=== PATIENT | male | born 1970 | race Two or more races ===

== ENCOUNTER 2018-06-19 06:03 | Inpatient (IN) | payer OTHER ==
[2018-06-19] MEDS: ACETAMINOPHEN 500 MG TAB PO (06:30)
[2018-06-19] MEDS ORDERED: TRANEXAMIC ACID 1GM/100ML(PMX) 200 ML (06:55)
[2018-06-19] MEDS: oxyCODONE (CR) 10 MG TAB [oxyCONTIN] PO (07:13)
[2018-06-19] MEDS: DEXAMETHASONE 4 MG/ML 1 ML INJ IV (07:13)
[2018-06-19] MEDS: ONDANSETRON 4 MG INJ IV ×4 (07:13→23:00)
[2018-06-19] MEDS: LACTATED RINGER'S 1,000 ML IV* ×2 (07:14→14:14)
[2018-06-19] MEDS: ACETAMINOPHEN 1000MG/100ML IV 100 ML IVPB (07:14)
[2018-06-19] MEDS: LANSOPRAZOLE 30 MG CAP PO (07:15)
[2018-06-19] MEDS ORDERED: morphine SULFATE/PF (10 MG/10 ML) INJ (07:36)
[2018-06-19] MEDS ORDERED: MIDAZOLAM 1 MG/ML 2 ML INJ (07:38)
[2018-06-19] MEDS ORDERED: PHENYLephrine (100 MCG/ML) 10ML SYG (07:51)
[2018-06-19] MEDS ORDERED: FENTAnyl 50 MCG/ML VIAL IV ×2 (08:00)
[2018-06-19] MEDS ORDERED: ONDANSETRON 4 MG INJ IV (08:00)
[2018-06-19] MEDS ORDERED: DIPHENHYDRAMINE 50 MG INJ IV (08:00)
[2018-06-19] MEDS ORDERED: METOCLOPRAMIDE 10 MG INJ IV (08:00)
[2018-06-19] MEDS ORDERED: ALBUTEROL 0.083% (NEB) 2.5 MG/3 ML AMP HHN (08:00)
[2018-06-19] MEDS ORDERED: MEPERIDINE 25 MG INJ IV (08:00)
[2018-06-19] MEDS ORDERED: HYDROmorphONE 1 MG/5 ML IV SYRINGE IV ×3 (08:00)
[2018-06-19] MEDS ORDERED: ONDANSETRON 4 MG INJ (08:01)
[2018-06-19] MEDS: TRANEXAMIC ACID 1GM/100ML(PMX) 100 ML PRE-OP X1 IVPB ×2 (08:21→10:38)
[2018-06-19] MEDS: POLYMYXIN B 500000 UNIT INJ (09:18)
[2018-06-19] MEDS: POLYMYXIN/BACITRACIN 1L IRRIG (09:19)
[2018-06-19] MEDS: BACITRACIN 50000 UNITS INJ (09:19)
[2018-06-19] MEDS ORDERED: FENTAnyl 50 MCG/ML VIAL (09:32)
[2018-06-19] MEDS ORDERED: CEFAZOLIN 1 GM INJ (09:38)
[2018-06-19] MEDS ORDERED: PROPOFOL 40 ML (09:38)
[2018-06-19] MEDS ORDERED: PHENYLephrine 10 MG INJ (10:05)
[2018-06-19] MEDS: TRANEXAMIC ACID 1GM/100ML(PMX) 100 ML INTRA-OP X1 IVPB (10:15)
[2018-06-19] MEDS ORDERED: NEOMYC/POLYMYX/BACIT 30 GM OINT (10:25)
[2018-06-19] MEDS ORDERED: NALOXONE (0.4 MG/ML) INJ IV (11:00)
[2018-06-19] MEDS ORDERED: KETOROLAC 15 MG INJ IV (11:00)
[2018-06-19] MEDS ORDERED: HYDROCODONE/APAP (5/325) TAB PO (11:00)
[2018-06-19] MEDS ORDERED: oxyCODONE 5 MG TAB PO (11:00)
[2018-06-19] MEDS: DOCUSATE SODIUM 100 MG CAP PO (11:28)
[2018-06-19] MEDS: CEFAZOLIN 1 GM/50 ML (PMX) 50 ML IVPB (11:59)
[2018-06-19] MEDS: GABAPENTIN 100 MG CAP PO ×2 (13:30→20:29)
[2018-06-19] MEDS ORDERED: HIP PAIN COCKTAIL (CEFUROXIME) INJ (15:30)
[2018-06-19] MEDS ORDERED: KNEE PAIN COCKTAIL VANCO INJ (15:30)
[2018-06-19] MEDS ORDERED: CEFAZOLIN 2 GM/50 ML (PMX) 50 ML IVPB (18:00)
[2018-06-19] MEDS: CEFAZOLIN 2 GM/50 ML (PMX) 50 ML IVPB (18:04)
[2018-06-20] MEDS: CEFAZOLIN 2 GM/50 ML (PMX) 50 ML IVPB (02:06)
[2018-06-20] MEDS: NACL 0.9% 3 ML SYG IV (04:02)
[2018-06-20] MEDS: ONDANSETRON 4 MG INJ IV (05:00)
[2018-06-20 05:24] LABS: ADD MAN DIFF? NO
[2018-06-20 05:25] LABS: BASOPHILS % 0.2 % (0.0-2.0); HEMATOCRIT 37.4 % (42.0-52.0); LYMPHOCYTES % 17.9 % (15.0-51.0); MEAN CORPUSCULAR HEMOGLOBIN 28.2 pg (29.0-33.0); MEAN CORPUSCULAR HGB CONC 32.1 g/dl (32.0-37.0); MEAN CORPUSCULAR VOLUME 87.8 fl (82.0-101.0); MEAN PLATELET VOLUME 9.5 fl (7.4-10.4); MONOCYTE # 1.3 10^3/ul (0.3-0.9); MONOCYTES % 11.4 % (0.0-11.0); NEUTROPHIL # 7.8 10^3/ul (1.6-7.5); NEUTROPHILS % 70.2 % (39.0-77.0); PLATELET COUNT 299 10^3/UL (140-415); RED BLOOD COUNT 4.26 10^6/ul (4.70-6.10); RED CELL DISTRIBUTION WIDTH 12.8 % (11.5-14.5)
[2018-06-20 05:25] LABS: WHITE BLOOD COUNT 11.1 10^3/ul (4.8-10.8)
[2018-06-20] MEDS: PANTOPRAZOLE (EC) 40 MG TAB PO (05:40)
[2018-06-20 05:43] LABS: PROTIME 13.3 Sec (11.9-14.9)
[2018-06-20 05:47] LABS: ANION GAP 12 (5-13); BLOOD UREA NITROGEN 19 mg/dl (7-20); CARBON DIOXIDE 26 mmol/L (21-31); CHLORIDE 100 mmol/L (97-110); CREATININE 0.84 mg/dl (0.61-1.24); Estimated GFR > 60 mL/min (>60); GLUCOSE 123 mg/dl (70-220); POTASSIUM 3.8 mmol/L (3.5-5.1); SODIUM 138 mmol/L (135-144)
[2018-06-20] MEDS: CELECOXIB 100 MG CAP PO (09:04)
[2018-06-20] MEDS: GABAPENTIN 100 MG CAP PO ×2 (09:04→13:18)
[2018-06-20] MEDS: ASPIRIN (EC) 81 MG TAB PO (09:04)
== END 2018-06-20 17:15 | disposition home health service (06) | DRG 470 ==
LOC: REC 06:03 → MS1 12:02
PROC: 0SR904A Replacement of Right Hip Joint with Ceramic on Polyethylene Synthetic Substitute, Uncemented, Open Approach (ICD-10-PCS; principal; 2018-06-19 07:30)
PROC: 8E0YXBZ Computer Assisted Procedure of Lower Extremity (ICD-10-PCS; 2018-06-19 07:30)
DX: M16.11 Unilateral primary osteoarthritis, right hip (principal); I10 Essential (primary) hypertension
CPT/HCPCS: 72170; 73500; 73530; 80048; 85025; 85610; 86850; 86900; 86901; 88304; 88311; 97110; 97116; 97161; 97165; 97530; 97535

== ENCOUNTER 2018-09-25 05:56 | Inpatient (IN) | payer OTHER ==
[2018-09-25] MEDS: ACETAMINOPHEN 1000MG/100ML IV 100 ML IVPB (06:47)
[2018-09-25] MEDS: DEXAMETHASONE 4 MG/ML 1 ML INJ IV (06:47)
[2018-09-25] MEDS: LANSOPRAZOLE 30 MG CAP PO (06:47)
[2018-09-25] MEDS: oxyCODONE (CR) 10 MG TAB [oxyCONTIN] PO (06:47)
[2018-09-25] MEDS: ONDANSETRON 4 MG INJ IV ×4 (06:47→22:30)
[2018-09-25] MEDS ORDERED: ROCURONIUM 50 MG INJ (07:00)
[2018-09-25] MEDS: TRANEXAMIC ACID 1GM/100ML(PMX) 100 ML INTRA-OP X1 IVPB (07:15)
[2018-09-25] MEDS ORDERED: MIDAZOLAM 1 MG/ML 2 ML INJ (07:21)
[2018-09-25] MEDS ORDERED: CEFAZOLIN 1 GM INJ (07:21)
[2018-09-25] MEDS ORDERED: morphine SULFATE/PF (10 MG/10 ML) INJ (07:21)
[2018-09-25] MEDS ORDERED: PROPOFOL 20 ML (07:21)
[2018-09-25] MEDS ORDERED: METOCLOPRAMIDE 10 MG INJ (07:22)
[2018-09-25] MEDS ORDERED: ONDANSETRON 4 MG INJ (07:22)
[2018-09-25] MEDS: CEFAZOLIN 1 GM/50 ML (PMX) 50 ML IVPB (07:39)
[2018-09-25] MEDS ORDERED: FENTAnyl 50 MCG/ML VIAL ×2 (07:42→08:13)
[2018-09-25] MEDS ORDERED: EPHEDrine 25 MG/5 ML SYG (07:55)
[2018-09-25] MEDS ORDERED: ALBUTEROL 0.083% (NEB) 2.5 MG/3 ML AMP HHN (08:00)
[2018-09-25] MEDS ORDERED: DIPHENHYDRAMINE 50 MG INJ IV (08:00)
[2018-09-25] MEDS ORDERED: HYDROmorphONE 1 MG/5 ML IV SYRINGE IV ×3 (08:00)
[2018-09-25] MEDS ORDERED: LORAZEPAM 2 MG INJ IV (08:00)
[2018-09-25] MEDS ORDERED: FENTAnyl 50 MCG/ML VIAL IV ×3 (08:00)
[2018-09-25] MEDS ORDERED: ONDANSETRON 4 MG INJ IV (08:00)
[2018-09-25] MEDS ORDERED: MEPERIDINE 25 MG INJ IV (08:00)
[2018-09-25] MEDS: TRANEXAMIC ACID 1GM/100ML(PMX) 100 ML ×2 (08:10→09:21)
[2018-09-25] MEDS: POLYMYXIN B 500000 UNIT INJ (08:17)
[2018-09-25] MEDS: HIP PAIN COCKTAIL VANCO INJ (08:17)
[2018-09-25] MEDS: BACITRACIN 50000 UNITS INJ IRR (08:18)
[2018-09-25] MEDS ORDERED: PHENYLephrine (100 MCG/ML) 10ML SYG (08:46)
[2018-09-25] MEDS ORDERED: ROPIVACAINE 0.5 % 30 ML VIAL (09:53)
[2018-09-25] MEDS ORDERED: ALBUMIN HUMAN 5% 250 ML (09:53)
[2018-09-25] MEDS: TRANEXAMIC ACID 1GM/100ML(PMX) 100 ML PRE-OP X1 IVPB (10:00)
[2018-09-25] MEDS ORDERED: KETOROLAC 30 MG INJ (10:26)
[2018-09-25] MEDS ORDERED: BISACODYL 10 MG SUPP PR (10:30)
[2018-09-25] MEDS ORDERED: SENNA/DOCUSATE NA (8.6MG/50MG) TAB PO (10:30)
[2018-09-25] MEDS ORDERED: MAGNESIUM HYDROXIDE 30ML CUP PO (10:30)
[2018-09-25] MEDS ORDERED: NA PHOSPHATE/BIPHOS 133 ML ENEMA PR (10:30)
[2018-09-25] MEDS ORDERED: NACL 0.9% 3 ML SYG IV (10:30)
[2018-09-25] MEDS ORDERED: KETOROLAC 15 MG INJ IV (10:30)
[2018-09-25] MEDS ORDERED: NALOXONE (0.4 MG/ML) INJ IV (10:30)
[2018-09-25] MEDS: LACTATED RINGER'S 1,000 ML IV (10:39)
[2018-09-25] MEDS: ALBUMIN HUMAN 5% 250 ML IV (11:07)
[2018-09-25] MEDS: DOCUSATE SODIUM 100 MG CAP PO (11:12)
[2018-09-25] MEDS: CEFAZOLIN 2 GM/50 ML (PMX) 50 ML IVPB ×2 (11:31→21:11)
[2018-09-25] MEDS: GABAPENTIN 100 MG CAP PO ×2 (13:00→21:12)
[2018-09-25] MEDS: ATORVASTATIN 20 MG TAB PO (21:12)
[2018-09-26] MEDS: ONDANSETRON 4 MG INJ IV (04:30)
[2018-09-26 05:08] LABS: ADD MAN DIFF? NO
[2018-09-26 05:14] LABS: WHITE BLOOD COUNT 11.4 10^3/ul (4.8-10.8)
[2018-09-26 05:14] LABS: BASOPHILS % 0.1 % (0.0-2.0); HEMATOCRIT 32.3 % (42.0-52.0); HEMOGLOBIN 10.5 g/dl (14.0-18.0); LYMPHOCYTES # 1.7 10^3/ul (0.8-2.9); LYMPHOCYTES % 14.5 % (15.0-51.0); MEAN CORPUSCULAR HEMOGLOBIN 27.3 pg (29.0-33.0); MEAN CORPUSCULAR HGB CONC 32.5 g/dl (32.0-37.0); MEAN CORPUSCULAR VOLUME 83.9 fl (82.0-101.0); MEAN PLATELET VOLUME 9.6 fl (7.4-10.4); MONOCYTE # 1.1 10^3/ul (0.3-0.9); NEUTROPHIL # 8.5 10^3/ul (1.6-7.5); PLATELET COUNT 242 10^3/UL (140-415); RED BLOOD COUNT 3.85 10^6/ul (4.70-6.10); RED CELL DISTRIBUTION WIDTH 13.1 % (11.5-14.5)
[2018-09-26 05:32] LABS: INR 1.02; PROTIME 13.5 Sec (11.9-14.9); PT RATIO 1.1
[2018-09-26 05:46] LABS: ANION GAP 7 (5-13); BLOOD UREA NITROGEN 13 mg/dl (7-20); CALCIUM 8.4 mg/dl (8.4-10.2); CARBON DIOXIDE 29 mmol/L (21-31); CHLORIDE 101 mmol/L (97-110); CREATININE 0.67 mg/dl (0.61-1.24); Estimated GFR > 60 mL/min (>60); GLUCOSE 142 mg/dl (70-220); SODIUM 137 mmol/L (135-144)
[2018-09-26] MEDS: CEFAZOLIN 2 GM/50 ML (PMX) 50 ML IVPB (06:35)
[2018-09-26] MEDS: PANTOPRAZOLE (EC) 40 MG TAB PO (06:36)
[2018-09-26] MEDS: ASPIRIN (EC) 81 MG TAB PO (08:36)
[2018-09-26] MEDS: LOSARTAN 50 MG TAB PO (08:36)
[2018-09-26] MEDS: HYDROCHLOROTHIAZIDE 12.5 MG CAP PO (08:36)
[2018-09-26] MEDS: GABAPENTIN 100 MG CAP PO ×2 (08:36→13:43)
[2018-09-26] MEDS: DOCUSATE SODIUM 100 MG CAP PO (08:36)
[2018-09-26] MEDS: CELECOXIB 100 MG CAP PO (08:37)
[2018-09-26] MEDS: oxyCODONE 5 MG TAB PO (16:02)
== END 2018-09-26 17:00 | disposition home health service (06) | DRG 470 ==
LOC: REC 05:56 → MS1 12:31
PROC: 0SRB04A Replacement of Left Hip Joint with Ceramic on Polyethylene Synthetic Substitute, Uncemented, Open Approach (ICD-10-PCS; principal; 2018-09-25 07:23)
DX: M16.12 Unilateral primary osteoarthritis, left hip (principal); I10 Essential (primary) hypertension; E78.5 Hyperlipidemia, unspecified; Z96.641 Presence of right artificial hip joint
CPT/HCPCS: 72170; 73500; 73530; 80048; 85025; 85610; 88304; 88311; 97110; 97116; 97163; 97167